=== PATIENT | male | born 1960 | race African-American/Black ===

== ENCOUNTER 2020-01-29 23:42 | Observation (INO) | payer BC, OTHER ==
[~2020-01-29] VITALS: Ht 172.7 cm; Wt 80.7 kg
[2020-01-29] MEDS ORDERED: IOHEXOL 350 MG/ML 100 ML VIAL. ONE (23:52)
--- NOTE | 2020-01-30 00:01 | RAD ---
EXAM: CT head without contrast INDICATION: Stroke alert COMPARISON: None TECHNIQUE: Axial CT imaging through the head without intravenous contrast. One or more of following individualized dose reduction techniques were utilized for this examination: 1. Automated exposure control 2. Adjustment of the mA and/or kV according to patient size 3. Use of iterative reconstruction technique. FINDINGS: The ventricles and sulci are normal. Smith-white matter differentiation is maintained. There is no intracranial hemorrhage, acute infarct, or mass lesion. Basal cisterns are clear. The skull and scalp are intact. Paranasal sinuses and mastoid air cells are clear. Globes and orbits are intact. IMPRESSION: No acute intracranial abnormality. Critical results discussed by Dr. Whitley with Dr. Mercado at 11:57 PM on 01/29/2020. FOR INTERNAL CODING PURPOSES Critical result: Findings discussed with JESSICA MERCADO at 01/29/2020 11:57 PM. RESULT CODE: (C) Electronically signed by: Ana Maria Whitley MD (01/29/2020 11:58 PM) [id number]
[2020-01-30 00:07] LABS: HEMATOCRIT 35.9 % (39.0-53.0); HEMOGLOBIN 11.6 g/dL (13.0-17.5); RED BLOOD COUNT 3.88 x10^6/uL (4.30-5.70); RED CELL DISTRIBUTION WIDTH 13.7 % (11.5-14.5); WHITE BLOOD COUNT 3.5 x10^3/uL (4.0-11.0)
--- NOTE | 2020-01-30 00:08 | PHYS DOC ---
General Adult EDM: Chief Complaint: stroke HPI: HPI: 59-year-old male presents via EMS as a code stroke. He was reported to be normal at 2300. He then was lying in bed and felt right-sided weakness he started to call out to his in the other room. She came into the room and he had slurred speech and decreased strength in the right side. She called 911. After getting back from CT the patient told me that he was lying in bed and when he wanted to sit up he found that the right side of his body was not moving and he was unable to sit up. He started a call out to his and realized his voice sounded funny. He does feel like the symptoms are starting to improve. He denies any recent medication changes. He denies any other recent illness. Denies fever or chills. Review of Systems: Review of Systems: Constitutional: Denies fever or chills Eyes: Denies change in visual acuity HENT: Denies nasal congestion or sore throat Respiratory: Denies cough or shortness of breath Cardiovascular: Denies chest pain or edema GI: Denies abdominal pain, nausea, vomiting, bloody stools or diarrhea : Denies dysuria Musculoskeletal: Denies back pain or joint pain Integument: Denies rash Neurologic: Denies headache, focal weakness or sensory changes Endocrine: Denies polyuria or polydipsia Lymphatic: Denies swollen glands Psychiatric: Denies depression or anxiety Heart Score: Risk Factors: Risk Factors: DM, Current or recent (<one month) smoker, HTN, HLP, family history of CAD, obesity. Risk Scores: Score 0 - 3: 2.5% MACE over next 6 weeks - Discharge Home Score 4 - 6: 20.3% MACE over next 6 weeks - Admit for Clinical Observation Score 7 - 10: 72.7% MACE over next 6 weeks - Early Invasive Strategies Current Medications: Current Meds: Current Medications Medications (Trade) Dose Ordered Sig/Ricardo Start Time Stop Time Status Last Admin Dose Admin Iohexol (Omnipaque 350 Mg/ml) 100 ml STK-MED ONCE 01/29/20 23:52 01/29/20 23:52 DC Physical Exam: PE: Constitutional: Well developed, well nourished, no acute distress, non-toxic appearance. [] HENT: Normocephalic, atraumatic, bilateral external ears normal, oropharynx moist, no oral exudates, nose normal. [] Eyes: PERRLA, EOMI, conjunctiva normal, no discharge. [] Neck: Normal range of motion, no tenderness, supple, no stridor. [] Cardiovascular: Heart rate regular rhythm, no murmur [] Lungs & Thorax: Bilateral breath sounds clear to auscultation [] Abdomen: Bowel sounds normal, soft, no tenderness, no masses, no pulsatile masses. [] Skin: Warm, dry, no erythema, no rash. [] Back: No tenderness, no CVA tenderness. [] Extremities: No tenderness, no cyanosis, no clubbing, ROM intact, no edema. [] Neurologic: Alert and oriented X 3, see NIHSS. [] Psychologic: Affect normal, judgement normal, mood normal. [] Current Patient Data: Labs: Laboratory Tests Test 01/29/20 23:57 Glucose (Fingerstick) 145 mg/dL (70-99) H EKG: EKG: Sinus rhythm, rate 74, leftward axis, no ST elevation or depressions, PVC. [] Radiology/Procedures: Radiology/Procedures: [] Impressions: EXAM: CT head without contrast INDICATION: Stroke alert COMPARISON: None TECHNIQUE: Axial CT imaging through the head without intravenous contrast. One or more of following individualized dose reduction techniques were utilized for this examination: 1. Automated exposure control 2. Adjustment of the mA and/or kV according to patient size 3. Use of iterative reconstruction technique. FINDINGS: The ventricles and sulci are normal. Smith-white matter differentiation is maintained. There is no intracranial hemorrhage, acute infarct, or mass lesion. Basal cisterns are clear. The skull and scalp are intact. Paranasal sinuses and mastoid air cells are clear. Globes and orbits are intact. IMPRESSION: No acute intracranial abnormality. Critical results discussed by Dr. Whitley with Dr. Mercado at 11:57 PM on 01/29/2020. FOR INTERNAL CODING PURPOSES Critical result: Findings discussed with JESSICA MERCADO at 01/29/2020 11:57 PM. RESULT CODE: (C) Electronically signed by: Ana Maria Whitley MD (01/29/2020 11:58 PM) [id number] DICTATED AND SIGNED BY: ANA MARIA WHITLEY MD DATE: 01/29/20 [id number] CC: JESSICA MERCADO DO ~ CT angiogram head and neck with contrast: Reason for examination: Code stroke. Helical images were obtained through the head and neck with intravenous administration of 75 cc Omnipaque 350 using angiographic protocol. 3-D MIPS reconstruction was performed in sagittal and coronal planes. Exposure: One or more of the following individualized dose reduction techniques were utilized for this examination: 1. Automated exposure control 2. Adjustment of the mA and/or kV according to patient size 3. Use of iterative reconstruction technique. The intracranial carotid arteries are patent without significant stenosis. There is normal bifurcation into their respective anterior and middle cerebral arteries with no occlusion or stenoses evident. The vertebral and basilar artery are patent without stenosis or occlusion. There is normal flow into the superior cerebellar and posterior cerebral arteries bilaterally with no occlusion or stenosis seen. No aneurysms or arteriovenous malformations are evident. Dural sinuses and cerebral veins are patent. No enhancing lesions are seen within the brain. The aortic arch gives rise to a right brachiocephalic artery, left common carotid artery and left subclavian artery without stenosis. The vertebral arteries are seen to arise from their respective subclavian arteries without stenoses or occlusions along the courses. The common carotid arteries show no stenoses or occlusions. There is normal bifurcation into the internal and external carotid arteries bilaterally without stenoses or occlusions. Jugular veins are patent. No abnormality seen at the thyroid gland. The trachea and visualized portion of the esophagus show no abnormalities. Vocal cords are symmetric. The vallecula and piriform sinuses show no abnormalities. No abnormalities of seen at the parotid or submandibular glands. Muscular bundles in the neck appear to be symmetric. IMPRESSION: No vascular abnormality seen in the head or neck. Electronically signed by: Jamie Torres MD (01/30/2020 12:42 AM) [facility] DICTATED AND SIGNED BY: JAMIE TORRES MD DATE: 01/30/20 0042 CC: JESSICA MERCADO DO; PCP,UNKNOWN ~ Course & Med Decision Making: Course & Med Decision Making Pertinent Labs and Imaging studies reviewed. (See chart for details) On arrival, I follow the patient down to CT. He was not moving his right upper or lower extremity. I did not hear him speak to evaluate for slurred speech. His plain head CT was negative. I ordered a CT angiogram. When the patient came back from CT reviewed him, he was able to fully recount the events of this evening. He told me that the weakness in his right side had improved significantly and that his voice was back to normal. He did not feel like he was having any difficulty speaking. The patient is well within the window of TPA, but he is already improving so I will hold consideration of this medication.. His NIH stroke scale for me is a 3. I suspect it was more like a 6 or 7 on arrival but a formal scale was not done at that time due to the priority of CT scan. The patient's labs are unremarkable except for mild anemia. CT angiogram was negative for acute finding. I will admit the patient for observation overnight and consultation with neurology. He is willing to be admitted to this facility. I spoke with the hospitalist, Dr. Pearce and he has accepted the patient for admission. [] Dragon Disclaimer: Dragon Disclaimer: This electronic medical record was generated, in whole or in part, using a voice recognition dictation system. NIH Stroke Scale: NIH Stroke Scale Response (Comments) Value Level of Consciousness: 0 Alert/Responsive 0 LOC Questions: 0 Answers both correctly 0 LOC Commands: 0 Performs both tasks 0 Best Gaze: 0 Normal 0 Visual: 0 No visual loss 0 Facial Palsy: 0 Normal, symmetrical 0 Motor - Left Arm 0 No drift 0 Motor - Right Arm 0 No drift 0 Motor - Left Leg 1 Drift but can hold 1 Motor: Right Leg 2 Some effort 2 Limb Ataxia: 0 Absent 0 Sensory: 0 No loss 0 Best Language: 0 Normal 0 Dysathria: 0 Normal 0 Extinction and Inattention: 0 Normal 0 Total 3 Departure Departure: Impression: Primary Impression: TIA (transient ischemic attack) Disposition: ADMITTED INPATIENT Admitting Physician: Nathan Pearce Condition: STABLE JESSICA MERCADO DO Jan 30, 2020 00:08
[2020-01-30 00:16] LABS: CALCIUM 8.7 mg/dL (8.5-10.1); CREATININE 1.1 mg/dL (0.7-1.3); GFR 68.5; POTASSIUM 4.2 mmol/L (3.5-5.1)
--- NOTE | 2020-01-30 00:45 | RAD ---
CT angiogram head and neck with contrast: Reason for examination: Code stroke. Helical images were obtained through the head and neck with intravenous administration of 75 cc Omnipaque 350 using angiographic protocol. 3-D MIPS reconstruction was performed in sagittal and coronal planes. Exposure: One or more of the following individualized dose reduction techniques were utilized for this examination: 1. Automated exposure control 2. Adjustment of the mA and/or kV according to patient size 3. Use of iterative reconstruction technique. The intracranial carotid arteries are patent without significant stenosis. There is normal bifurcation into their respective anterior and middle cerebral arteries with no occlusion or stenoses evident. The vertebral and basilar artery are patent without stenosis or occlusion. There is normal flow into the superior cerebellar and posterior cerebral arteries bilaterally with no occlusion or stenosis seen. No aneurysms or arteriovenous malformations are evident. Dural sinuses and cerebral veins are patent. No enhancing lesions are seen within the brain. The aortic arch gives rise to a right brachiocephalic artery, left common carotid artery and left subclavian artery without stenosis. The vertebral arteries are seen to arise from their respective subclavian arteries without stenoses or occlusions along the courses. The common carotid arteries show no stenoses or occlusions. There is normal bifurcation into the internal and external carotid arteries bilaterally without stenoses or occlusions. Jugular veins are patent. No abnormality seen at the thyroid gland. The trachea and visualized portion of the esophagus show no abnormalities. Vocal cords are symmetric. The vallecula and piriform sinuses show no abnormalities. No abnormalities of seen at the parotid or submandibular glands. Muscular bundles in the neck appear to be symmetric. IMPRESSION: No vascular abnormality seen in the head or neck. Electronically signed by: Erin Vallejo MD (01/30/2020 12:42 AM) [facility]
[2020-01-30] MEDS ORDERED: IOHEXOL 350 MG/ML 100 ML VIAL. IV ONE (01:00)
[2020-01-30] MEDS ORDERED: CONTRAST GIVEN. MC PRN (01:00)
[2020-01-30] MEDS ORDERED: CLOPIDOGREL BISULFATE 75 MG TABLET PO ONE (01:45)
--- NOTE | 2020-01-30 01:53 | EKG ---
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
[2020-01-30] MEDS ORDERED: cefTRIAXone SODIUM 1 GM VIAL ONE (02:00)
[2020-01-30] MEDS ORDERED: IV NORMAL SALINE 50ML 50 ML ONE (02:00)
[2020-01-30] MEDS ORDERED: ONDANSETRON PF 4 MG/2 ML VIAL. IVP PRN (02:00)
[2020-01-30 02:31] VITALS: BP 144/88
--- NOTE | 2020-01-30 02:59 | RAD ---
Chest AP portable at 12:40 AM: Reason for examination: Short of breath. History of pacemaker. No previous exams for comparison. Pacemaker is present on the left hemithorax with leads to the right atrium and right ventricle. The heart size is enlarged. Mediastinum is otherwise unremarkable. Lung cobos show prominence of the pulmonary vasculature and interstitium which probably reflects some pulmonary vascular congestion and interstitial edema. This probably reflects congestive heart failure. No consolidated infiltrates or pleural effusions are seen. No acute bony abnormalities are seen. IMPRESSION: Cardiomegaly with pulmonary vascular congestion and interstitial edema consistent with congestive heart failure. Electronically signed by: Erin Vallejo MD (01/30/2020 2:56 AM) [facility]
[2020-01-30] MEDS ORDERED: CARV25TA PO (05:06)
[2020-01-30] MEDS ORDERED: SACU1TAB PO (05:06)
[2020-01-30] MEDS ORDERED: BICT1TAB PO (05:06)
[2020-01-30] MEDS ORDERED: SPIR25TA5 PO (05:06)
[2020-01-30] MEDS ORDERED: FLUT15.812 NS (05:06)
[2020-01-30] MEDS ORDERED: ATOR40TA59 PO (05:06)
[2020-01-30] MEDS ORDERED: METF-658 PO (05:06)
[2020-01-30] MEDS ORDERED: DEXT1DRO7 OP (05:06)
[2020-01-30] MEDS ORDERED: METH5TAB85 PO (05:06)
--- NOTE | 2020-01-30 05:15 | NUR ---
The patient, LUPE REARDON, 59 y/o, M admitted by REBEL PALAFOX MD, was given written information regarding hospital policies, unit procedures and contact persons. Valuables were checked and noted. PT presented via EMS from home with . PT stated he awoke abruptly and could not move his RLE and his RUE had a weak client insights consultant. EMS stated PT with expressive aphasia, weak client insights consultant on RT and weak movement of RLE. PT's symptoms resolving by time of arrival to ED. PT admitted for observation. Reviewed with PT his PMH, PSH, SH, FH and medications. PT exhibiting mild weakness of RT hand client insights consultant and slight weakness of RLE. PT able to follow commands, identify objects, read and comprehend. PT able to answer all questions appropriately. PT has been dissatisfied with care at [facility]. PT with ICD in place but feeling like his medication has not been helping and taking more than prescribed of Entresto and Coreg.
[2020-01-30 05:54] VITALS: BP 108/74
--- NOTE | 2020-01-30 07:31 | NUR ---
NURSING NOTE CONSULT CONSULT PAGED TO DR KERR NEUROLOGY. WAITING FOR CALL BACK. MARVIN MARTIN. Addendum: 01/30/20 at 0905 by VERONICA SMITH RN RN DR KERR CALLED BACK, NOTIFIED OF PT ADMISSION.
--- NOTE | 2020-01-30 09:04 | NUR ---
NURSING NOTE FAMILY PHONE CALL PT GABRIEL CALLED PHONE NUMBER [phone], OKAY PER PT TO SPEAK WITH , PASSCODE GIVEN TO , INFORMED OF PT STATUS THIS AM UPON ASSESSMENT, WAITING FOR DR PALAFOX AND DR KERR TO ROUND. WILL CALL BACK WITH UPDATE AFTER THE PHYSICIAN ROUNDS WITH PT. MARVIN MARTIN.
[2020-01-30] MEDS ORDERED: EFAVIRENZ PO (09:20)
[2020-01-30] MEDS ORDERED: EMTR1TAB12 PO (09:20)
[2020-01-30 10:41] VITALS: BP 108/67
--- NOTE | 2020-01-30 11:09 | NUR ---
NURSING NOTE DISCHARGE PT DISCHARGED HOME VIA WHEELCHAIR PICKED UP BY GABRIEL. PT GIVEN WRITTEN AND VERBAL DISCHARGE INSTRUCTIONS. PT GIVEN EDUCATION ABOUT TIA/STROKE PREVENTION. PT IS TO STAY ON HIS STATIN MEDICATION. PT IS TO START DAILY ASPIRIN OTC PER DR PALAFOX. NO SCRIPTS GIVEN. PT EDUCATION ABOUT THE [facility]ORT[facility] AND GETTING A REFERRAL FOR NEUROLOGY FOR FURTHER TESTING AND EVALUATION. PER ACCEPTED TEACHING. MARVIN MARTIN.
--- NOTE | 2020-01-30 12:06 | HP ---
ADMIT DATE: 01/30/2020 ATTENDING PHYSICIAN: Dr. Palafox CHIEF COMPLAINT: Code stroke. HISTORY OF PRESENT ILLNESS: The patient is a 59-year-old gentleman normally seen at the [facility]. He comes in with new onset of right-sided weakness with associated slurred speech, came on at rest. He was in bed. He called his . He was admitted. He was sent to the ER. By the time he was seen in the ED and had a CT angiogram and CT of the head, symptoms resolved, he regained most of the function. Chest x-ray was clear. He was admitted then for the TIA which has since resolved spontaneously and he was admitted for further evaluation and neurologic exam. PAST MEDICAL HISTORY: Significant for HIV infection. He also has hyperthyroidism, heart failure and placement of ____. CURRENT MEDICATIONS: Include Lipitor; Coreg 25 mg b.i.d.; emtricitabine, tenofovir and alafenamide combination of drug 1 daily, efavirenz 600 mg tablet daily, Aldactone, Entresto, Tapazole, fluticasone and p.r.n. Tylenol. ALLERGIES: He has no known drug allergies. FAMILY HISTORY: Noncontributory. SOCIAL HISTORY: Nonsmoker, nondrinker. No history of recent drug use. REVIEW OF SYSTEMS: Unremarkable for any COVID exposure, fevers, chills, cough, congestion. He was seen in the ED. He has had a scratchy throat and a nonproductive cough, which may be allergy related. All other systems reviewed and turned to be negative. PHYSICAL EXAMINATION: GENERAL: When I saw him, this is a pleasant, middle-aged gentleman. INITIAL VITAL SIGNS: Showed blood pressure 136/86, pulse 87 and regular. He was afebrile, oxygen saturation 100% on room air. HEENT: Head is without trauma. Pupils are reactive. Sclerae nonicteric. Oropharynx clear. NECK: Supple, no bruits identified. LUNGS: Otherwise clear. CARDIOVASCULAR: Showed regular heart tones. No gallops. Peripheral pulses are palpable and full. ABDOMEN: Soft, scaphoid, nontender. Normal bowel sounds. EXTREMITIES: Showed no cyanosis or edema. NEUROLOGIC: Focally intact. Speech is fluent. Cranial nerves 2 through 12 are intact. He had no focal deficits. SKIN: Warm and dry. IMAGING STUDIES: Chest x-ray demonstrated the presence of AICD. Heart size at the upper limits of normal. There is mild vascular congestion. No decompensation or acute infiltrate. CT angiogram was unremarkable for any obstruction. LABORATORY STUDIES: Hemoglobin was 11.6 g/dL with white count of 3500. Electrolytes, BUN and creatinine within normal range. Nonfasting blood sugar 145. ASSESSMENT: 1. A 59-year-old gentleman [facility] with transient ischemic attack, symptoms resolved. Has followup deficits with left middle cerebral artery distribution, symptoms had improved. 2. History of cardiomyopathy with AICD. 3. History of human immunodeficiency virus infection, on multidrug therapy. 4. Hyperthyroidism. PLAN: 1. Admit for observation status. 2. Neurology consult. 3. Aspirin and Plavix given. 4. Continue home meds. 5. Further evaluation per Neurology. REBEL PALAFOX MD DR: LJ/pierre JOB#: [id number] / [id number]
--- NOTE | 2020-01-30 12:56 | DS ---
DATE OF DISCHARGE: 01/30/2020 ATTENDING PHYSICIAN: Dr. Palafox FINAL DISCHARGE DIAGNOSES: 1. Transient ischemic attack, symptoms resolved. 2. Cardiomyopathy with AICD, compensated. 3. History of human immunodeficiency virus infection. 4. Hyperlipidemia. 5. Hyperthyroidism. HISTORY AND PHYSICAL: This 59-year-old gentleman, [facility], was admitted with symptoms of TIA. He had right-sided weakness with associated dysarthria. By the time he came to the ED, his symptoms resolved. He was admitted for observation and Neurology consultation. PHYSICAL EXAMINATION: Please see the dictated note. PERTINENT LABORATORY AND X-RAY STUDIES: Chemistry panel, CBC within normal range. The patient's CT angiogram of his head was patent without any obstruction. CT of the head showed no pathology. Chest x-ray showed AICD, cardiomegaly without any decompensation. COURSE IN THE HOSPITAL: He was started on some aspirin and Plavix. Neurology consultation was entertained. Please see Dr. Yoon's recommendation on the chart. He did well. He had no focal deficits. Speech was fluent. He was ready for discharge. At this time, we added a baby aspirin 1 daily. He should continue his Lipitor at bedtime, Coreg 25 mg b.i.d., artificial tears, Efavirenz 600 mg at bedtime, Descovy triple-combination antiviral 1 daily, fluticasone, Tapazole 2.5 mg daily, Entresto daily and Aldactone 25 mg daily. He is recommended to follow up for a visit as an outpatient in 2 weeks. He was discharged from our hospital in stable condition with explicit instructions and followup care. REBEL PALAFOX MD DR: LJ/pierre JOB#: [id number] / [id number]
--- NOTE | 2020-01-31 04:45 | CONS ---
DATE OF CONSULTATION: 01/30/2020 NEUROLOGY CONSULTATION REFERRING PHYSICIAN: Dr. Pearce REASON FOR CONSULTATION: Rule out TIA versus stroke. HISTORY OF PRESENT ILLNESS: This is a 59-year-old male who was admitted through Emergency Room after he presented with chief complaints of sudden onset of right-sided weakness and some slurred speech. The patient was lying in bed, watching TV and all of a sudden, he could not move and he was very weak, mainly on the right side. EMS was activated and transferred the patient to the Emergency Room. On arrival, the patient was found to have some right-sided weakness. His blood pressure was 136/64. Initial nonenhanced CT scan revealed no evidence of acute intracranial process, otherwise unremarkable. After returning from CT scan, the patient started improving and his speech was much fluid and he started moving his right side better. 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 He has been suffering from sore throat discomfort and he has been seen at [facility] for this problem. He described exertional dyspnea as well. Currently, he denies headaches, visual disturbances, nausea, vomiting, chest pain, shortness of breath or palpitation, dysarthria or dysphagia or vertigo. He denies any head injuries or fall. PAST MEDICAL HISTORY: Significant for palpitations, congestive heart failure, history of coronary artery disease, internal defibrillator, history of syphilis, prostate cancer, anxiety, diabetes mellitus, hepatitis, history of HIV and sleep difficulties. Currently, he is receiving hormone therapy for prostate cancer. He received radiation therapy for prostate cancer, ended in 09/2019. SOCIAL HISTORY: The patient lives with his . He denies smoking, alcohol drinking, or illicit drug use. FAMILY HISTORY: Father had throat cancer, had also lung cancer. Brother had a prostate cancer. Mother had hypertension. ____ hyperlipidemia. CURRENT HOME MEDICATIONS: Lipitor 40 mg p.o. daily, carvedilol 25 mg b.i.d., Flonase nasal spray, methimazole 5 mg tablets, emtricitabine/tenofovir alafenamide 1 tablet daily, valsartan 25 mg/26 mg tablet daily, spironolactone 25 mg p.o. daily, efavirenz 600 mg tablet at bedtime. ALLERGIES: No known allergies. REVIEW OF SYSTEMS: A 10-point review of system was performed as mentioned above in history of present illness. PHYSICAL EXAMINATION: GENERAL: A well-developed, well-nourished male, not in acute distress. He weighs 80.7 kilos. VITAL SIGNS: Blood pressure 108/74, respiratory rate 20, pulse is 66, oxygen sats 100% on room air, temperature 98. HEENT: Normocephalic, atraumatic, otherwise unremarkable. NECK: Supple. Negative for carotid bruit, lymphadenopathy or thyromegaly. LUNGS: Clear to A and P. CARDIOVASCULAR: Regular rate and rhythm. Normal S1, S2. There is no S3, S4 or murmur. ABDOMEN: Soft. Bowel sounds positive. EXTREMITIES: Negative for cyanosis, clubbing or edema. NEUROLOGICAL EXAMINATION: MENTAL STATUS: The patient is alert and oriented x 3. Speech is fluent. There is no language dysfunction. Memory, judgment, and abstracting thinking are normal. The patient denies hallucination or delusion. CRANIAL NERVES: Visual cobos are full. The pupils are reactive to light and accommodation. The extraocular movements are intact. There is no nystagmus. There are no facial motor or sensory deficits. Hearing is intact bilaterally. The palate is elevated symmetrically. Sternocleidomastoid muscles are powerful bilaterally. The patient shrugs his shoulders symmetrically, protrudes his tongue in the midline without fasciculation or atrophy. MOTOR EXAMINATION: No focal muscle bulk was seen. The tone is normal. The strength is 5/5 throughout. SENSORY EXAMINATION: Revealed normal pinprick, light touch, vibratory and position senses. DEEP TENDON REFLEXES: Symmetric and active without pathologic responses. GAIT AND COORDINATION: Normal. DIAGNOSTIC DATA: Nonenhanced head CT scan revealed no evidence of acute intracranial process. CT angio of the head and neck revealed no vascular abnormalities. Chest x-ray revealed cardiomegaly with pulmonary vascular congestion and interstitial edema consistent with congestive heart failure. LABORATORY DATA: CBC revealed white blood cells of 3.5 thousand, hemoglobin 11.6, hematocrit 35.9, platelet count 235,000. Chemistry revealed sodium of 138, potassium 4.2, chloride 104, CO2 of 27, BUN 17, creatinine 1.1 and glucose 169. Coagulation: PT is 12.1 and INR 1.2. IMPRESSION: 1. Possible transient ischemic attack. 2. Multiple medical problems including diabetes mellitus, coronary artery disease status post defibrillator for palpitations, history of congestive heart failure, prostate cancer and positive HIV. RECOMMENDATIONS: 1. Continue with his current home medications. 2. Follow up with his welder gas tungsten arc. 3. The patient should be on aspirin 81 mg p.o. daily. 4. Follow up with Dr. Kerr in 2 weeks and probably perform electroencephalogram. 5. Treat the underlying medical conditions. M Claudy KERR MD DR: JOLIE/pierre JOB#: [id number] / [id number]
== END 2020-01-30 11:12 | disposition home or self-care (01) ==
LOC: ER 23:42 → 1 SOUTH 01-30 01:00
PROVIDERS: ADMIT Hospitalist; ATTEND Hospitalist
DX: G45.9 Transient cerebral ischemic attack, unspecified (principal); B20 Human immunodeficiency virus [HIV] disease; E03.9 Hypothyroidism, unspecified; I42.9 Cardiomyopathy, unspecified; E78.5 Hyperlipidemia, unspecified; I50.9 Heart failure, unspecified; I25.10 Atherosclerotic heart disease of native coronary artery without angina pectoris; Z85.46 Personal history of malignant neoplasm of prostate; Z79.01 Long term (current) use of anticoagulants; Z79.82 Long term (current) use of aspirin
CPT/HCPCS: 36415; 70450; 70496; 70498; 71045; 80048; 80061; 82947; 85027; 85610; 85730; 93005; 96365; 99285; G0378; J0696; Q9967; G0379